=== PATIENT | female | born 1965 | race Caucasian/White ===

== ENCOUNTER 2023-12-11 10:02 | Emergency (ER) | payer OTHER, SELFPAY ==
[2023-12-11] VITALS (8 sets, daily range): BP systolic 139–197; BP diastolic 65–88; PULSE 78–88; RESP 18; TEMP 35.9; O2SAT 91–94; BMI 47.2
--- NOTE | 2023-12-11 10:34 | ED.EYEPROB ---
HPI - Eye Problem General Chief complaint: Eye Problems Stated complaint: L eye giving light charges per pt Time Seen by Provider: 12/11/23 10:33 Source: patient Mode of arrival: Ambulatory Limitations: no limitations History of Present Illness HPI Narrative: 57-year-old female who does wear glasses and intermittently contacts who presents complaint with flashing lights in her left the 1st episode was 3 days ago was brief and resolved. She has a again this morning for a few seconds several times. She states no pain, no acute vision changes. She does have seasonal allergies and states she has had a little bit of irritation to her eyes. She states has not had any additional recently. She does note little bit of left ear pain irritation. Patient states she does wear glasses sometimes contact their 2 [address] She states she has not been wearing them regularly because they are more irritated during seasonal allergy. She has not had any prior eye surgeries. She was told she has cataracts. She was following with an family sociologist in [place] but has moved to the area. States she has presumed allergy to sulfa. Use any eyedrops regularly. Related Data Allergies Allergy/AdvReac Type Severity Reaction Status Date / Time Sulfa (Sulfonamide AdvReac Verified 12/11/23 10:29 Antibiotics) Review of Systems Review of Systems ROS Unobtainable: All systems reviewed & are unremarkable except as noted in HPI and below Patient History Social History Smoking Status: Never smoker Smoking Status: Never smoker alcohol intake frequency: holidays/special occasions only Substance Use Type: does not use Exam Narrative Exam Narrative: GENERAL: Alert and oriented x three, female in mild distress HEENT: Head normocephalic, atraumatic, EOMI, pupils reactive, face symmetric, moist mucous membranes Visual acuity: right [20/20], left [20/30] without correction. IOP: Right 32 mm Hg, Left 26 mm Hg General: no globe trauma Eyelids: normal inspection. Conjunctiva/Sclera: normal inspection Corneas: normal inspection, examined with fluroscein on patient did have a small amount of uptake linear across the cornea from 12:00 to 3:00. EOM: intact, no palsy/entrapment Pupils: PERRL, normal accomadation, pupil normal Anterior Chambers: normal inspection, no hypema Posterior: normal fundoscopic on bilateral although not dilated exam. NECK: Supple, full range of motion CARDIOVASCULAR: Regular rate and rhythm without murmurs, rubs or gallops. RESPIRATORY: Breath sounds equal bilaterally, no wheezes rales or rhonchi. EXTREMITIES: Normal range of motion, no clubbing or edema. Neurovascularly intact NEUROLOGICAL: Cranial nerves II through XII grossly intact. Moving all extremities SKIN: Warm, dry, no petechiae, no rashes or lesions. Initial Vital Signs Initial Vital Signs: Vital Signs Pulse Rate 88 12/11/23 10:08 Pulse Oximetry 93 12/11/23 10:08 Course Orders Ordered: Discontinued Medications Fluorescein Sodium (Fluorescein 1 Mg Strip) 1 mg EYE-BOTH NOW ONE Stop: 12/11/23 10:35 Last Admin: 12/11/23 11:00 Dose: 1 mg Documented By: SINA Proparacaine HCl (Proparacaine 0.5% Ophth Alyssa) 1 drops EYE-BOTH NOW ONE Stop: 12/11/23 10:35 Last Admin: 12/11/23 11:00 Dose: 1 drops Documented By: SINA Vital Signs Vital signs: Vital Signs - 8 hr 12/11/23 10:08 12/11/23 10:09 12/11/23 10:09 Temperature Pulse Rate 88 88 Respiratory Rate Blood Pressure 197/88 H Pulse Oximetry 93 94 Oxygen Delivery Method 12/11/23 10:18 12/11/23 10:30 12/11/23 10:31 Temperature 96.7 F L Pulse Rate 85 78 Respiratory Rate 18 Blood Pressure 197/88 H 163/72 H Pulse Oximetry 94 93 Oxygen Delivery Method Room Air 12/11/23 10:31 12/11/23 10:40 12/11/23 10:40 Temperature Pulse Rate 79 85 Respiratory Rate Blood Pressure 148/65 H Pulse Oximetry 91 94 Oxygen Delivery Method 12/11/23 11:00 12/11/23 11:01 12/11/23 11:01 Temperature Pulse Rate 79 80 Respiratory Rate Blood Pressure 139/67 Pulse Oximetry 91 92 Oxygen Delivery Method MDM - Eye Problem MDM Narrative Medical decision making narrative: Patient came in with complaint of some flashing lights in her left eye no pain. She has normal funduscopic on exam although somewhat limited. Pressures were elevated although patient did squeeze her eyes quite a bit was greater on the right than the left. She has no history of elevated intra-ocular pressures and states she was getting regular exams. She does wear contacts. She had a corneal abrasion it was over the area where the fluorescein was placed but I did wait to have her blink several times and come back several minutes later and was still present but she has no pain or symptoms consistent with corneal abrasion. Patient's visual acuity otherwise appropriate she is 20 30 in the left compared to 2020. Discussed with patient would like her to follow up with Ophthalmology for repeat exam today, she is to go directly to the ophthalmology office on the other side of the hospital. Spoke with Dr. Montana who is happy to see the patient. patient did not present to ophthalmology office. We did reach out by telephone, no answer on the phone. Discharge Plan Departure Patient Disposition: Home Clinical Impression: Change in vision Activity Restrictions/Additional Instructions: Your eye exam shows a possible corneal abrasion but is not consistent with your current symptoms. Your intraocular pressures were also little bit elevated but this maybe secondary to our device. Please follow up with Ophthalmology today. Please go to the office they will repeat your exam as well as perform a more in-depth exam. Please return for sudden vision changes, new pain, vomiting, new swelling redness or other changes. Referrals: Jessenia Montana MD [Physician] - Stand Alone Forms: Patient Portal/API
[2023-12-11] MEDS: FLUORESCEIN 1 MG STRIP EYE-BOTH (11:00)
[2023-12-11] MEDS: PROPARACAINE 0.5% OPHTH SOL 1 DROPS EYE-BOTH (11:00)
== END 2023-12-11 11:35 | disposition home or self-care (01) ==
PROVIDERS: Emergency Provider Emergency Medicine
DX: H53.9 Unspecified visual disturbance (principal)
CPT/HCPCS: 99282; 99283

== ENCOUNTER 2024-04-13 07:57 | Emergency (ER) | payer OTHER, SELFPAY ==
[2024-04-13 08:00] VITALS: BP 185/85; PULSE 70; RESP 17; TEMP 36.8; O2SAT 96
--- NOTE | 2024-04-13 09:00 | ED.EYEPROB ---
HPI - Eye Problem General Chief complaint: Eye Problems Stated complaint: L eye pain t-2 Time Seen by Provider: 04/13/24 09:00 Source: patient Mode of arrival: Ambulatory History of Present Illness HPI Narrative: 58-year-old female with history of sleep apnea, uses mask, woke up this morning with mask shifted to the left over the lower eyelid which seemed irritated and red, no discharge. No visual changes. Related Data Home Medications Medication Instructions Recorded Confirmed albuterol sulfate 90 mcg/actuation inhalation 03/11/24 03/11/24 aerosol inhaler azelastine 137 mcg (0.1 %) nasal intranasal 03/11/24 03/11/24 spray fluticasone propionate 115 2 puff inhalation BID 03/11/24 03/11/24 mcg-salmeterol 21 mcg/actuation HFA inhaler (Advair HFA) fluticasone propionate 50 1 spray intranasal BID 03/11/24 03/11/24 mcg/actuation nasal spray,suspension levothyroxine 125 mcg tablet 125 mcg PO DAILY 03/11/24 03/11/24 (Synthroid) Previous Rx's Medication Instructions Recorded erythromycin 5 mg/gram (0.5 %) eye 1 applic EYE-LEFT TID eye 04/13/24 ointment infection 7 days #3.5 grams Allergies Allergy/AdvReac Type Severity Reaction Status Date / Time Sulfa (Sulfonamide AdvReac runs in Verified 04/13/24 08:48 Antibiotics) the family Review of Systems Review of Systems Narrative: see HPI Patient History Social History Smoking Status: Never smoker Smoking Status: Never smoker alcohol intake frequency: holidays/special occasions only Substance Use Type: does not use Exam Narrative Exam Narrative: GENERAL: Well-developed patient, in mild distress. HEAD: Atraumatic. Normocephalic. EYES: Left lower medial eyelid slight redness and irritation. No significant scleral injection, no discharge. Pupils equal round and reactive. Extraocular motions intact. No scleral icterus. No injection or drainage. ENT: Nose without bleeding, purulent drainage. Throat without erythema, tonsillar hypertrophy or exudate. Airway patent. NECK: Trachea midline. Non tender CARDIOVASCULAR: Regular rate and rhythm without murmurs, gallops, or rubs. RESPIRATORY: Clear to auscultation. Breath sounds equal bilaterally. No wheezes, rales, or rhonchi. GASTROINTESTINAL: Abdomen soft, non-tender, nondistended. EXTREMITIES: No edema or joint tenderness. BACK: Nontender without deformity or crepitance. No flank tenderness. NEURO: AOx3. Cranial nerve exam unremarkable. Motor 5/5 upper and lower extremities. [id number] testing normal. SKIN: No rash or erythema of visible areas Initial Vital Signs Initial Vital Signs: Vital Signs Temperature 98.3 F 04/13/24 08:00 Pulse Rate 70 04/13/24 08:00 Respiratory Rate 17 04/13/24 08:00 Blood Pressure 185/85 H 04/13/24 08:00 Pulse Oximetry 96 04/13/24 08:00 Oxygen Delivery Method Room Air 04/13/24 08:00 Course Orders Ordered: Discontinued Medications Fluorescein Sodium (Fluorescein 1 Mg Strip) 1 mg EYE-BOTH NOW ONE Stop: 04/13/24 09:13 Last Admin: 04/13/24 09:17 Dose: 1 mg Documented By: BREE Proparacaine HCl (Proparacaine 0.5% Ophth Alyssa) 1 drops EYE-BOTH NOW ONE Stop: 04/13/24 09:13 Last Admin: 04/13/24 09:17 Dose: 1 drop Documented By: BREE Vital Signs Vital signs: Vital Signs - 8 hr 04/13/24 08:00 04/13/24 09:33 Temperature 98.3 F Pulse Rate 70 73 Respiratory Rate 17 16 Blood Pressure 185/85 H 178/87 H Pulse Oximetry 96 97 Oxygen Delivery Method Room Air Room Air MDM - Eye Problem MDM Narrative Medical decision making narrative: 58-year-old female with obstructive sleep apnea, home CPAP, mask was over her left lower eyelid this morning had shifted, some irritation to that area, no visual complaints. No discharge. Proparacaine/fluorescein exam with Wood's lamp showed no obvious corneal abrasion. Topical proparacaine, fluorescein, Wood's lamp exam left eye. No obvious scleral abrasion or corneal abrasion, no foreign bodies seen, occasional mucus. We will treat for conjunctivitis, though likely irritative by history from the face mask to the lower lid, we will send prescription for erythromycin ophthalmic ointment to her pharmacy. Follow up with her eye provider in 2 days advised if not improved. Return precautions discussed. Discharge Plan Departure Patient Disposition: Home Clinical Impression: Conjunctivitis Activity Restrictions/Additional Instructions: History of sleep apnea, CPAP mask had migrated to the left-sided an upwards, irritating the left lower eyelid, some irritation on exam, could be local abrasion only, but clinically appears to look like conjunctivitis, we will treat with topical antibiotics for now. Erythromycin ointment sent to your pharmacy. Consider recheck with your regular provider eye clinic in a couple of days if not improved. Return earlier to this/nearest emergency department for any change worsening symptoms or any concerns prior Prescriptions: New erythromycin 5 mg/gram (0.5 %) ointment 1 applic EYE-LEFT TID 7 Days Qty: 3.5 0RF No Action fluticasone propion-salmeterol [Advair HFA] 115-21 mcg/actuation HFA aerosol inhaler 2 puff inhalation BID fluticasone propionate 50 mcg/actuation spray,suspension 1 spray intranasal BID albuterol sulfate 90 mcg/actuation HFA aerosol inhaler inhalation azelastine 137 mcg (0.1 %) spray,non-aerosol intranasal levothyroxine [Synthroid] 125 mcg tablet 125 mcg PO DAILY Referrals: Jessenia Montana MD [Physician] - Linnea Mast FNP-C [Primary Care Provider] - Stand Alone Forms: Patient Portal/API
[2024-04-13] MEDS: FLUORESCEIN 1 MG STRIP EYE-BOTH (09:17)
[2024-04-13] MEDS: PROPARACAINE 0.5% OPHTH SOL 1 DROPS EYE-BOTH (09:17)
[2024-04-13 09:33] VITALS: BP 178/87; PULSE 73; RESP 16; O2SAT 97
== END 2024-04-13 09:35 | disposition home or self-care (01) ==
PROVIDERS: Emergency Provider Emergency Medicine; PCP Nurse Practitioner Family
DX: H10.9 Unspecified conjunctivitis (principal)
CPT/HCPCS: 99282; 99283

== ENCOUNTER → 2024-06-09 17:27 | Outpatient (CLI) | payer OTHER, SELFPAY ==
[2024-06-09 18:31] LABS: Influenza A - CEPHEID Flu A NEGATIVE (NEGATIVE); Influenza B - CEPHEID Flu B NEGATIVE (NEGATIVE); Respiratory Syncytial Virus Negative (Negative)
[2024-06-09 18:33] LABS: COVID-19 CEPHEID 4-PLEX PCR Negative (Negative)
== END ==
PROVIDERS: PCP Nurse Practitioner Family; Visit Provider Physician Assistant Medical
DX: R05.1 Acute cough (principal); J01.00 Acute maxillary sinusitis, unspecified
CPT/HCPCS: 0241U

== ENCOUNTER 2024-06-16 23:27 | Emergency (ER) | payer OTHER, SELFPAY ==
[2024-06-16 23:32] VITALS: BP 180/88; PULSE 78; RESP 18; TEMP 36.4; O2SAT 98; BMI 46.3
--- NOTE | 2024-06-16 23:43 | PC.NURSE ---
puncture wound just above the knuckle on the 2nd digt of the left hand, pt c/o increased pain when bend the digit
--- NOTE | 2024-06-16 23:53 | ED_ITS ---
HPI - Animal Bite General Chief Complaint: Animal Bite Stated Complaint: bit by her cat Time Seen by Provider: 06/16/24 23:53 Source: patient Mode of arrival: Ambulatory History of Present Illness HPI narrative: Patient is a 58-year-old female who is here for evaluation of a cat bite to her left finger. This was her own domestic cat. She does need an update of her tetanus shot. Related Data Home Medications Medication Instructions Recorded Confirmed albuterol sulfate 90 mcg/actuation inhalation 03/11/24 06/09/24 aerosol inhaler azelastine 137 mcg (0.1 %) nasal intranasal 03/11/24 06/09/24 spray fluticasone propionate 115 2 puff inhalation BID 03/11/24 06/09/24 mcg-salmeterol 21 mcg/actuation HFA inhaler (Advair HFA) fluticasone propionate 50 1 spray intranasal BID 03/11/24 06/09/24 mcg/actuation nasal spray,suspension levothyroxine 125 mcg tablet 125 mcg PO DAILY 03/11/24 06/09/24 (Synthroid) Previous Rx's Medication Instructions Recorded azithromycin 250 mg tablet See Rx Instructions PO .COMPLEX #6 06/09/24 tabs amoxicillin 875 mg-potassium 1 tab PO BID 5 days #10 tabs 06/17/24 clavulanate 125 mg tablet doxycycline hyclate 100 mg capsule 100 mg PO BID 5 days #10 caps 06/17/24 Allergies Allergy/AdvReac Type Severity Reaction Status Date / Time Sulfa (Sulfonamide AdvReac runs in Verified 04/13/24 08:48 Antibiotics) the family Review of Systems Integumentary/Breasts Skin/Breast: Reports system reviewed and no additional complaints, except as documented Patient History Social History Smoking Status: Never smoker Smoking Status: Never smoker alcohol intake frequency: holidays/special occasions only Substance Use Type: does not use Exam Initial Vital Signs Initial Vital Signs: Vital Signs Temperature 97.6 F 06/16/24 23:32 Pulse Rate 78 06/16/24 23:32 Respiratory Rate 18 06/16/24 23:32 Blood Pressure 180/88 H 06/16/24 23:32 Pulse Oximetry 98 06/16/24 23:32 Oxygen Delivery Method Room Air 06/16/24 23:32 Skin Other: Two small puncture wounds on the lateral aspect of her left index finger. Course Orders Ordered: Discontinued Medications Amoxicillin/Clavulanate Potassium (Amoxicillin/Clav 875/125 Mg) 1 tab PO NOW ONE Stop: 06/16/24 23:54 Last Admin: 06/17/24 00:19 Dose: Not Given Documented By: Bacitracin (Bacitracin Oint 0.9 Gm Pckt) 1 applic TOP NOW ONE Stop: 06/17/24 00:22 Last Admin: 06/17/24 00:24 Dose: 1 applic Documented By: Diphtheria/Tetanus/Acell Pertussis (Tet,Diph,Pertuss(Acell),Vac/Pf 0.5 Ml Syringe) 0.5 ml IM .ONCE ONE Stop: 06/16/24 23:54 Last Admin: 06/17/24 00:00 Dose: 0.5 ml Documented By: Doxycycline Hyclate (Doxycycline Hyclate 100 Mg Tablet) 100 mg PO NOW ONE Stop: 06/17/24 00:12 Last Admin: 06/17/24 00:16 Dose: 100 mg Documented By: Vital Signs Vital signs: Vital Signs - 8 hr 06/16/24 23:32 06/17/24 00:28 Temperature 97.6 F 98.4 F Pulse Rate 78 66 Respiratory Rate 18 19 Blood Pressure 180/88 H 135/78 Pulse Oximetry 98 98 Oxygen Delivery Method Room Air Room Air MDM - Animal Bite MDM Narrative Medical decision making narrative: Wounds were cleaned. Tetanus was updated. Will place on antibiotics seeing as this is a bite to her finger. First dose given here in the ER. Prescription was sent to the pharmacy of her choice. Patient was given return precautions. Discharge Plan Departure Patient Disposition: Home Clinical Impression: Cat bite Instructions: DI for Cat Bite Activity Restrictions/Additional Instructions: Your tetanus shot was updated today. You can keep the wounds clean with soap and water and topical antibiotic ointment. Take the antibiotics as directed. Return to the emergency department for new symptoms. Pre your recommendation we switched you from Augmentin (amoxicillin/clavulanic acid) to doxycycline. Unfortunately the Augmentin had already been sent to the pharmacy. I am unable to cancel this once it has been sent. When you go to pick up operator your doxycycline from the pharmacy tell them that you do not need/want the Augmentin and only pick up operator the doxycycline very now Prescriptions: New amoxicillin-pot clavulanate 875-125 mg tablet 1 tab PO BID 5 Days Qty: 10 0RF doxycycline hyclate 100 mg capsule 100 mg PO BID 5 Days Qty: 10 0RF No Action azithromycin 250 mg tablet See Rx Instructions PO .COMPLEX Qty: 6 0RF Rx Instructions: For 250 mg dose pack: take 500 mg today (day 1), then 250 mg for 4 days (days 2-5) PO fluticasone propion-salmeterol [Advair HFA] 115-21 mcg/actuation HFA aerosol inhaler 2 puff inhalation BID fluticasone propionate 50 mcg/actuation spray,suspension 1 spray intranasal BID albuterol sulfate 90 mcg/actuation HFA aerosol inhaler inhalation azelastine 137 mcg (0.1 %) spray,non-aerosol intranasal levothyroxine [Synthroid] 125 mcg tablet 125 mcg PO DAILY Referrals: Linnea Mast, ASSISTANT SURVEYOR-C [Primary Care Provider] - Stand Alone Forms: Patient Portal/API/Survey
[2024-06-17] MEDS: TET,DIPH,PERTUSS(ACELL),VAC/PF 0.5 ML SYRINGE IM
[2024-06-17] MEDS: DOXYCYCLINE HYCLATE 100 MG TABLET PO (00:16)
--- NOTE | 2024-06-17 00:19 | PC.NURSE ---
Pt believes she may be allergic to Amoxicillin because her identical sister is allergic to it. Dr Walsh notified, new orders received.
[2024-06-17] MEDS: BACITRACIN OINT 0.9 GM PCKT 1 APPLIC TOP (00:24)
[2024-06-17 00:28] VITALS: BP 135/78; PULSE 66; RESP 19; TEMP 36.9; O2SAT 98
== END 2024-06-17 00:28 | disposition home or self-care (01) ==
PROVIDERS: Emergency Provider Emergency Medicine; PCP Nurse Practitioner Family
DX: S61.251A Open bite of left index finger without damage to nail, initial encounter (principal); W55.01XA Bitten by cat, initial encounter; Z23 Encounter for immunization
CPT/HCPCS: 90471; 99283; 90715

== ENCOUNTER → 2024-06-20 14:14 | Outpatient (CLI) | payer OTHER, SELFPAY | PROVIDERS: PCP Nurse Practitioner Family; Visit Provider Physician Assistant Surgical | DX: S61.251A Open bite of left index finger without damage to nail, initial encounter (principal); W55.01XA Bitten by cat, initial encounter | CPT/HCPCS: 87070; 87205 ==

== ENCOUNTER 2024-11-11 11:47 | Emergency (ER) | payer OTHER, SELFPAY ==
[2024-11-11 12:04] VITALS: BP 185/86; PULSE 84; RESP 20; TEMP 36.6; O2SAT 95; BMI 46.3
--- NOTE | 2024-11-11 12:09 | DI.RAD.S_ITS ---
PROCEDURE: XR ANKLE RT MIN 3V INDICATIONS: glf TECHNIQUE: 3 views of the ankle were acquired. COMPARISON: None. FINDINGS: Bones: Minimally displaced distal fibular tip fracture. In addition, mildly displaced medial malleolar fracture. Soft tissues: Ankle effusion. Achilles tendon appears normal. IMPRESSION: Bimalleolar fracture with ankle edema. Dictated by: Karina Godinez M.D. on 11/11/2024 at 13:27 Approved by: Karina Godinez M.D. on 11/11/2024 at 13:30
[2024-11-11 14:37] VITALS: PULSE 70; RESP 16; O2SAT 98
--- NOTE | 2024-11-11 18:14 | ED_ITS ---
HPI - Extremity Injury (Lower) General Chief Complaint: Extremity Injury, Lower Stated Complaint: Fell at home; RT foot pain, hit head Time Seen by Provider: 11/11/24 18:14 Source: patient, RN notes reviewed and old records reviewed Mode of arrival: Wheelchair Limitations: no limitations History of Present Illness HPI Narrative: 58-year-old female history of hypothyroidism, asthma and sleep apnea. Patient states she was walking from a carpeted area to an area with a linoleum slipped and fell backwards. She states she hit her head and a CT tree. She was not sure she had any loss of consciousness. She states she was saw that cats nose immediately thereafter. She was had some mild headache but no severe headaches. No midline back pain, she was has a little bit of lower back discomfort. Her main complaint is her ankle. Patient denies any nausea or vomiting no dizziness. No other chest pain, shortness of breath or other GI symptoms. She has a little bit of tingling in her toes immediately after on the right foot but that has resolved. She was pain with movement or weight-bearing. She notes it swelled immediately and she felt a snap. She does not take any aspirin or thinners. States she has not allergy to sulfa. No tobacco occasional alcohol, no recreational drugs. Related Data Home Medications Medication Instructions Recorded Confirmed albuterol sulfate 90 mcg/actuation inhalation 03/11/24 06/09/24 aerosol inhaler azelastine 137 mcg (0.1 %) nasal intranasal 03/11/24 06/09/24 spray fluticasone propionate 115 2 puff inhalation BID 03/11/24 06/09/24 mcg-salmeterol 21 mcg/actuation HFA inhaler (Advair HFA) fluticasone propionate 50 1 spray intranasal BID 03/11/24 06/09/24 mcg/actuation nasal spray,suspension levothyroxine 125 mcg tablet 125 mcg PO DAILY 03/11/24 06/09/24 (Synthroid) Previous Rx's Medication Instructions Recorded azithromycin 250 mg tablet See Rx Instructions PO .COMPLEX #6 06/09/24 tabs Allergies Allergy/AdvReac Type Severity Reaction Status Date / Time Sulfa (Sulfonamide AdvReac runs in Verified 04/13/24 08:48 Antibiotics) the family Review of Systems Review of Systems ROS Unobtainable: All systems reviewed & are unremarkable except as noted in HPI and below Patient History Social History Smoking Status: Never smoker Smoking Status: Never smoker alcohol intake frequency: holidays/special occasions only Exam Narrative Exam Narrative: GEN: Patient appears in mild distress. HEAD: No evidence of trauma, no raccoon/Feldman sign. NECK: Nontender, painless range of motion, trachea midline Negative Nexus criteria, no midline line tenderness, distracting injury, altered mental status, neuro deficit, recent EtOH. EYES: PERRLA, EOMI ENT: External inspection normal, trachea is midline, TM's are normal no hemotypanum, Nares are clear, no septal hematoma, no dental or oral injury, airway is normal and with normal occlusion, No bony tenderness RESP: Chest is nontender and has symmetric movement, no ecchymosis, breath sounds are normal no crackles, wheezes or rales CVS: Heart sounds are normal, no murmur noted, No JVD. ABG/GI: Nontender, soft, normal bowel sounds, no distention, no organomegaly, pelvic rock is negative NEURO: Oriented AOx3, neuro is grossly intact, sensation and motor is normal all 4 extremities moving, cranial nerves II through XII are intact, GCS is 15 PSYCH: Normal mood and affect SKIN: Intact, warm and dry, no crepitus and without decubitus BACK: No CVA tenderness, no vertebral tenderness, no step-off's, no crepitus EXT: Patient has swelling and ecchymosis of the right ankle with bilateral malleolar tenderness, no other bony tenderness of the calcaneus, tarsal bones or toes. No tenderness of the I proximal tibia, no knee pain. No hip pain. Patient is neurovascularly intact. Hips are nontender, no pedal edema, normal color and temperature, normal range of motion of extremities with normal tendon exam, 2+ pulses in all four extremities Initial Vital Signs Initial Vital Signs: Vital Signs Temperature 98 F 11/11/24 12:04 Pulse Rate 84 11/11/24 12:04 Respiratory Rate 20 11/11/24 12:04 Blood Pressure 185/86 H 11/11/24 12:04 Pulse Oximetry 95 11/11/24 12:04 Oxygen Delivery Method Room Air 11/11/24 12:04 Course Orders Ordered: Discontinued Medications Hydrocodone Bitart/Acetaminophen (Hydrocodone/Acet 5/325 Tablet) 1 tab PO NOW ONE Stop: 11/11/24 13:41 Last Admin: 11/11/24 14:36 Dose: Not Given Documented By: GLORIA Ibuprofen (Ibuprofen 400 Mg Tablet) 800 mg PO NOW ONE Stop: 11/11/24 13:40 Last Admin: 11/11/24 14:36 Dose: Not Given Documented By: GLORIA Vital Signs Vital signs: Vital Signs - 8 hr 11/11/24 12:04 11/11/24 14:37 Temperature 98 F Pulse Rate 84 70 Respiratory Rate 20 16 Blood Pressure 185/86 H Pulse Oximetry 95 98 Oxygen Delivery Method Room Air Room Air MDM - Extremity Injury (Lower) MDM Narrative Medical decision making narrative: Right ankle x-ray shows bimalleolar fracture with ankle edema. Minimally displaced distal fibular tip fracture. Mildly displaced medial malleolar fracture. With the ankle effusion. Spoke with the orthopedic surgery Dr. Jaeger at 1825. Images were reviewed plan for splint, toe-touch weight-bearing as needed. Outpa tient follow up for surgery office we will reach out to the patient on Thursday. Discharge Plan Departure Patient Disposition: Home Clinical Impression: Bimalleolar ankle fracture Instructions: DI for Ankle Fracture Activity Restrictions/Additional Instructions: Follow up with Orthopedic surgery, call Thursday to set up an appointment. Contacts included below. You can take acetaminophen and/or ibuprofen as needed for pain. Toe-touch weight-bearing as tolerated. Use crutches for ambulation. Splint Care: Keep splint clean and dry. Elevated affected body part to decrease swelling. OK to use ice pack on the affected body part. Use for 15-20 minutes each time, for 5-6x per day. If you develop worsening pain, numbness, tingling, discoloration of the affected body part, loosen the splint by loosening the DEENA wrap, and either see your doctor for an urgent re-assessment, or return to the Emergency Department. Return to the Emergency Department for any new or worsening symptoms. Prescriptions: No Action azithromycin 250 mg tablet See Rx Instructions PO .COMPLEX Qty: 6 0RF Rx Instructions: For 250 mg dose pack: take 500 mg today (day 1), then 250 mg for 4 days (days 2-5) PO fluticasone propion-salmeterol [Advair HFA] 115-21 mcg/actuation HFA aerosol inhaler 2 puff inhalation BID fluticasone propionate 50 mcg/actuation spray,suspension 1 spray intranasal BID albuterol sulfate 90 mcg/actuation HFA aerosol inhaler inhalation azelastine 137 mcg (0.1 %) spray,non-aerosol intranasal levothyroxine [Synthroid] 125 mcg tablet 125 mcg PO DAILY Referrals: Teresa Jaeger MD [Physician] - Linnea Mast FNP-C [Primary Care Provider] - Stand Alone Forms: Patient Portal/API/Survey
--- NOTE | 2024-11-11 19:09 | PC.NURSE ---
Pt states she slipped on wood floor states she heard a pop. Pulses in tact. <2 cap refill. Pt able to move toes. pain w/ movement. Min-mod ankle swelling on right sdie.
[2024-11-11 19:13] VITALS: BP 193/95; PULSE 76; RESP 19; TEMP 36.7; O2SAT 94
== END 2024-11-11 19:16 | disposition home or self-care (01) ==
PROVIDERS: Emergency Provider Emergency Medicine; PCP Nurse Practitioner Family
DX: S82.841A Displaced bimalleolar fracture of right lower leg, initial encounter for closed fracture (principal); R51.9 Headache, unspecified; S09.90XA Unspecified injury of head, initial encounter; M54.50 Low back pain, unspecified; W01.198A Fall on same level from slipping, tripping and stumbling with subsequent striking against other object, initial encounter
CPT/HCPCS: 29515; 73610; 99282; 99283

== ENCOUNTER 2024-11-17 00:14 | Emergency (ER) | payer OTHER, SELFPAY ==
[2024-11-17 00:31] VITALS: BP 160/76; PULSE 84; RESP 16; TEMP 37.6; O2SAT 95; BMI 47.5
--- NOTE | 2024-11-17 01:14 | ED_ITS ---
HPI - Extremity Injury (Lower) General Chief Complaint: Extremity Injury, Lower Stated Complaint: right foot pain/fx/x6 days Time Seen by Provider: 11/17/24 01:14 Source: patient Mode of arrival: Wheelchair History of Present Illness HPI Narrative: 58-year-old female with a past medical history of asthma, hypothyroidism, comes into the ED from home for evaluation of right ankle pain. She states that she had a fall previously and and was seen here and placed in a splint, she was instructed to follow up with Orthopedic surgery, however she states that she felt sharp shooting pain to the lateral side of her ankle, states that she took Aleve, she states that she is scheduled for surgery next week but given the pain wanted to be evaluated. She states that she has requesting alternative pain management, she states that she was prescribed tramadol by the orthopedist but she states that she will is wanting if there is any other medications that can help with the pain. She does not want any opiate medications, she denies any new trauma or falls. She states that her appointment is some time in the middle of next week. Related Data Home Medications Medication Instructions Recorded Confirmed albuterol sulfate 90 mcg/actuation 2 puff inhalation Q2-4H PRN 03/11/24 11/17/24 aerosol inhaler Shortness Of Breath azelastine 137 mcg (0.1 %) nasal 2 spray intranasal BID 03/11/24 11/17/24 spray fluticasone propionate 115 2 puff inhalation BID 03/11/24 11/17/24 mcg-salmeterol 21 mcg/actuation HFA inhaler (Advair HFA) fluticasone propionate 50 2 spray intranasal BEDTIME 03/11/24 11/17/24 mcg/actuation nasal spray,suspension levothyroxine 125 mcg tablet 125 mcg PO DAILY 03/11/24 11/17/24 (Synthroid) Allergies Allergy/AdvReac Type Severity Reaction Status Date / Time Sulfa (Sulfonamide AdvReac runs in Verified 04/13/24 08:48 Antibiotics) the family Review of Systems Review of Systems Narrative: General: Denies fever, chills, weight loss HEENT: Denies headache, eye drainage, eye irritation, head trauma, sore throat, voice change Cardiovascular: Denies any chest pain, palpitations, tachycardia Respiratory: Denies any shortness of breath, cough, wheeze, stridor GI/: Denies any abdominal pain, nausea, vomiting, diarrhea, bright red blood per rectum, melanotic stools, urinary frequency, urinary retention, dysuria, hematuria MSK: Positive right ankle pain, Denies any joint pain, muscle pains, swelling Skin: Denies any rashes, lesions, discoloration Neuro: Denies any headache, lightheadedness, dizziness, fainting, weakness Psych: Denies SI/HI Patient History Smoking Status: Never smoker alcohol intake frequency: holidays/special occasions only Exam Narrative Exam Narrative: General: Cooperative, well-developed, not in acute distress HEENT: Normocephalic, atraumatic, PERRLA, normal sclera, eyelids normal Neck: Active full range of motion, atraumatic Chest: Normal to inspection, negative crepitus, no overlying erythema ecchymosis Respiratory: Normal respiratory effort, not in acute respiratory distress, clear to auscultation bilaterally negative cough, wheeze, tachypnea, rhonchi, rales Cardiology: Regular rate rhythm negative gallop, murmur, rubs GI/: No tenderness to palpation, soft, non rigid, normal to inspection, exam deferred MSK: Patient with splint to the right lower extremity neurovascularly intact Skin: No rashes or lesions noted Neuro: Alert awake oriented x3, moves all 4 extremities spontaneously, cranial nerves intact, able to answer all questions appropriately follows commands appropriately Psych: Cooperative, negative suicidal or homicidal ideations Initial Vital Signs Initial Vital Signs: Vital Signs Temperature 99.6 F 11/17/24 00:31 Pulse Rate 84 11/17/24 00:31 Respiratory Rate 16 11/17/24 00:31 Blood Pressure 160/76 H 11/17/24 00:31 Pulse Oximetry 95 11/17/24 00:31 Oxygen Delivery Method Room Air 11/17/24 00:31 Course Vital Signs Vital signs: Vital Signs - 8 hr 11/17/24 00:31 Temperature 99.6 F Pulse Rate 84 Respiratory Rate 16 Blood Pressure 160/76 H Pulse Oximetry 95 Oxygen Delivery Method Room Air MDM - Extremity Injury (Lower) Differential Diagnosis Differential diagnosis: Likely ankle sprain and strain, ankle fracture and other (Splint check) MDM Narrative Medical decision making narrative: 58-year-old female who presenting for pain to the right ankle, she has a known bimalleolar fracture that was diagnosed in splint in on 11/11/2024, she has an appointment with orthopedic surgery for surgical fixation in 1 week, however she states that she had some increasing pain and wanted to be evaluated. Denies any new trauma or falls, on exam neurovascularly intact, patient presenting for alternatives for pain management, she states that she was prescribed tramadol by the orthopedist but she states that she was wondering if there is any other different medications that shaking try for her pain, she states that she does not want anything opiate related, I informed her that we can attempt to try muscle relaxers however she states that she does not want this, she states that she is willing to try the tramadol, he has no indication for repeat x-rays given patient neurovascularly intact and no new trauma, patient was given strict return precautions verbalized understanding of this and agrees to being discharged home with outpatient follow up Review of records show that patient was seen here on 11/11/2024 had an x-ray that showed bimalleolar fracture, with minimally displaced distal fibular tip fracture with mildly displaced medial malleolar fracture, at that time orthopedic surgery was consulted review the images recommended splint toe touch and to follow up. Discharge Plan Departure Patient Disposition: Home Clinical Impression: Aftercare for cast or splint check or change Activity Restrictions/Additional Instructions: Please follow up with your orthopedic surgeon for your scheduled appointment Please read the discharge instructions sheet carefully and bring all papers to all doctor follow-up visits, as it may contain information that your doctor may want to see. Disease processes change and evolve, if your symptoms worsen or if you develop any new symptoms that are concerning to you please return for evaluation. Your evaluation today does not show any evidence of any life- threatening/serious illnesses requiring admission to the hospital or surgery. Please follow-up with your doctor for re-evaluation in approximately 1 day. Seek immediate medical attention for any worrisome symptoms. *If you do not have a primary care provider please contact the [facility] Resource line at [phone]. They will ask some questions about your medical history and help get you set up with a doctor in the community. Prescriptions: No Action fluticasone propion-salmeterol [Advair HFA] 115-21 mcg/actuation HFA aerosol inhaler 2 puff inhalation BID fluticasone propionate 50 mcg/actuation spray,suspension 2 spray intranasal BEDTIME albuterol sulfate 90 mcg/actuation HFA aerosol inhaler 2 puff inhalation Q2-4H PRN (Reason: Shortness Of Breath) azelastine 137 mcg (0.1 %) spray,non-aerosol 2 spray intranasal BID levothyroxine [Synthroid] 125 mcg tablet 125 mcg PO DAILY Referrals: Linnea Mast FNP-C [Primary Care Provider] - Stand Alone Forms: Patient Portal/API/Survey
[2024-11-17 01:46] VITALS: BP 133/73; PULSE 74; RESP 16; O2SAT 95
== END 2024-11-17 01:47 | disposition home or self-care (01) ==
PROVIDERS: Emergency Provider Student in an Organized Health Care Education/Training Program; PCP Nurse Practitioner Family
DX: S82.841D Displaced bimalleolar fracture of right lower leg, subsequent encounter for closed fracture with routine healing (principal)
CPT/HCPCS: 99281